=== PATIENT | female | born 1970 | race Caucasian/White ===

== ENCOUNTER 2022-05-13 09:53 | Day surgery (SDC) | payer OTHER, MEDICAID ==
[2022-05-10 12:05] LABS: BASOPHILS # (AUTO) 0.1 X10'3 (0-0.2); BASOPHILS % (AUTO) 0.8 % (0-1); EOSINOPHILS # (AUTO) 0.2 X10'3 (0-0.9); EOSINOPHILS % (AUTO) 1.9 % (0-6); LYMPHOCYTES # (AUTO) 2.2 X10'3 (1.1-4.8); LYMPHOCYTES % (AUTO) 25.7 % (21-51); MEAN CORPUSCULAR HEMOGLOBIN 25.2 PG (27.0-31.0); MEAN CORPUSCULAR HGB CONC 32.9 g/dL (33.0-36.5); MEAN CORPUSCULAR VOLUME 76.6 FL (78-98); MEAN PLATELET VOLUME 8.5 FL (7.4-10.4); MONOCYTES # (AUTO) 0.6 X10'3 (0-0.9); MONOCYTES % (AUTO) 6.6 % (2-12); NEUTROPHILS # (AUTO) 5.5 X10'3 (1.8-7.7); PRE OP HEMATOCRIT 39.3 % (35.0-45.0); PRE OP PLATELET COUNT 242 X10'3 (140-440); RED BLOOD COUNT 5.13 X10'6 (4.20-5.60); RED CELL DISTRIBUTION WIDTH 14.2 % (11.5-14.5)
[2022-05-10 13:02] LABS: ALBUMIN 3.6 G/DL (3.4-5.0); ALKALINE PHOSPHATASE 86 IU/L (46-116); BLOOD UREA NITROGEN 10 MG/DL (7-18); BUN/CREATININE RATIO 14.1 (6.6-38.0); CALCIUM 9.7 MG/DL (8.5-10.1); CHLORIDE 108 MMOL/L (99-107); CREATININE 0.71 MG/DL (0.40-0.90); PRE OP ALT 24 U/L (30-65); PRE OP ANION GAP 7 (8-16); PRE OP AST 14 U/L (10-37); PRE OP BILIRUB, TOTAL 0.2 MG/DL (0.0-1.0); PRE OP GLUCOSE 89 MG/DL (70-104); PRE OP SODIUM 140 MMOL/L (135-145); TOTAL CARBON DIOXIDE 24.7 MMOL/L (24-32); TOTAL PROTEIN 7.3 G/DL (6.4-8.2); eGFR 87 ML/MIN
[~2022-05-13] VITALS: Ht 152.4 cm; Wt 72.0 kg
[~2022-05-13 09:53] MED LIST: MAGN200T5 PO; VALE100C PO; ceFOXitin 2GM-NS 100mL ADDvant 100 ML IV ONE; famotidine 20mg tablet PO ONE; ringers solution, lacted 1,000 ML IV SCH
[2022-05-13 10:58] VITALS: BP 134/84
[2022-05-13] MEDS ORDERED: LIDOCAINE 1%/EPI 1:100,000 inj. 10 ML multi-dose vial ONE (13:37)
[2022-05-13] MEDS ORDERED: ceFAZolin 1000mg inj ONE (13:37)
[2022-05-13] MEDS ORDERED: sevoflurane 250ml liquid IH ONE (13:41)
[2022-05-13] MEDS ORDERED: morphine 2 MG/ML inj. syringe IV PRN (13:55)
[2022-05-13] MEDS ORDERED: hydrALAZINE 20mg/ml inj. IV PRN (13:55)
[2022-05-13] MEDS ORDERED: ondansetron/PF 4mg/2ml inj IV PRN (13:55)
[2022-05-13] MEDS ORDERED: proCHLORperazine 10 MG/2 ml inj IV PRN (13:55)
[2022-05-13] MEDS ORDERED: morphine 4 MG/ML inj SYRINge IV PRN (13:55)
[2022-05-13] MEDS ORDERED: meperidine/PF 25mg/ml syringe IV PRN ×3 (13:55)
[2022-05-13] MEDS ORDERED: ringers solution, lacted 1,000 ML IV SCH (13:55)
[2022-05-13] MEDS ORDERED: acetaminophen 1,000mg/100ml IV 100 ML IV PRN (13:55)
[2022-05-13] MEDS ORDERED: labetalol 20mg/4ml (5mg/ml) syringe IV PRN (13:55)
[2022-05-13] MEDS ORDERED: fentaNYL/PF 50MCG/1 ML 2ML syringe ONE (13:58)
[2022-05-13] MEDS ORDERED: midazolam 1 mg/ML 2ml injection ONE (14:01)
[2022-05-13] MEDS ORDERED: propofol inj 20 ML IV ONE (14:20)
[2022-05-13] MEDS ORDERED: LIDOcaine 2% (20mg/ml) 5ml vial ONE (14:20)
[2022-05-13] MEDS ORDERED: dexamethasone sod phosphate 4mg/ml inj. ONE (14:20)
[2022-05-13] MEDS ORDERED: ondansetron/PF 4mg/2ml inj ONE (14:20)
[2022-05-13] MEDS ORDERED: fluoroscein sod 10% (100mg/ml) 5ml vial ONE (14:47)
[2022-05-13] MEDS ORDERED: ketorolac trometh. 30mg/ml inj. ONE (14:54)
[2022-05-13 15:14] VITALS: BP 145/80
--- NOTE | 2022-05-13 15:14 | NUR ---
Received from OR via [facility] , accompanied by Anesthesiologist DELANO and report given by Anesthesiolgist. PATIENT WITH 20GPIV IN LEFT UE RUNNING LR AT 100. PATIENT WITH ONE TRACEY PAD IN PLACE AND VSS AT THIS TIME. DENIES PAIN AND ONLY REQUESTS FLUIDS TO DRINK. Addendum: 05/13/22 at 1520 by Eliceo Ramirez RN, RN Amended: Links added.
[2022-05-13 15:20] VITALS: BP 162/100
[2022-05-13 15:30] VITALS: BP 152/92
[2022-05-13] MEDS ORDERED: oxyCODONE/APAP 5-325mg tablet PO PRN (15:35)
[2022-05-13 15:40] VITALS: BP 156/97
[2022-05-13 15:50] VITALS: BP 150/91
--- NOTE | 2022-05-13 15:54 | NUR ---
ALL DISCHARGE CRITERIA HAS BEEN MET. VSS, PAIN AT A TOLERABLE LEVEL, VOIDING AND ABLE TO SAFELY AMBULATE AND TRANSFER SELF. IV TAKEN OUT WITHOUT ANY COMPLICATIONS. ALL DISCHARGE INSTRUCTIONS COVERED WITH PATIENT AND ALL QUESTIONS ANSWERED. PATIENT TAKEN OUT VIA WHEELCHAIR TO PERSONAL VEHICLE WHERE FAMILY/FRIEND DROVE PATIENT HOME. Addendum: 05/13/22 at 1631 by Eliceo Ramirez RN, RN Amended: Links added.
== END 2022-05-13 15:54 | disposition home or self-care (01) ==
LOC: PAS 09:53
PROVIDERS: ATTEND Obstetrics & Gynecology
DX: N30.10 Interstitial cystitis (chronic) without hematuria (principal); N39.3 Stress incontinence (female) (male); F41.9 Anxiety disorder, unspecified; F64.9 Gender identity disorder, unspecified; Z79.899 Other long term (current) drug therapy; Z20.822 Contact with and (suspected) exposure to COVID-19; Z90.710 Acquired absence of both cervix and uterus; Z98.890 Other specified postprocedural states; Z87.891 Personal history of nicotine dependence
CPT/HCPCS: 36415; 57288; 80053; 82948; 85025; 87811; C1758; C1771; J0690; J0694; J1100; J1885; J2250; J2405; J2704; J3010; J3490; J7030; J7120; Z7506; Z7508; Z7512; A4355; A4618; A7000